=== PATIENT | male | born 2005 | race American Indian/Alaskan Native ===

== ENCOUNTER 2025-10-11 23:45 | Emergency (ER) | payer BC, MEDICAID ==
[2025-10-12] MEDS: Diphtheria,Pertussis(Acell),Tetanus Vaccine 0.5 ML Syringe IM ONE (01:50)
[2025-10-12] MEDS: Silver Sulfadiazine 1% Crm 50 GM Tube TOP ONE (01:55)
== END 2025-10-12 02:15 | disposition home or self-care (01) ==
LOC: VM.ED 23:45
DX: T25.222A Burn of second degree of left foot, initial encounter (principal); X12.XXXA Contact with other hot fluids, initial encounter; Z23 Encounter for immunization
CPT/HCPCS: 16020; 90471; 90715; 99283; A9270